=== PATIENT | male | born 1955 | race African-American/Black ===

== ENCOUNTER 2022-11-10 13:51 | Emergency (ER) | payer OTHER ==
[~2022-11-10] VITALS: Ht 180.3 cm; Wt 104.3 kg
--- NOTE | 2022-11-10 14:20 | NUR ---
PAtient AOx4, able to express his concerns. Patient states he has neck stiffness, but overall feels ok. Discussed plan of care, patient verbalized agreement.
[2022-11-10 14:46] VITALS: BP 138/76
== END 2022-11-10 14:55 | disposition home or self-care (01) ==
LOC: ER 13:55
DX: R42 Dizziness and giddiness (principal); I10 Essential (primary) hypertension; Z98.890 Other specified postprocedural states
CPT/HCPCS: 82962-TC

== ENCOUNTER 2024-08-09 12:57 | Emergency (ER) | payer OTHER, MEDICAID ==
[~2024-08-09] VITALS: Ht 177.8 cm; Wt 108.0 kg
[2024-08-09 15:04] VITALS: BP 135/69; TEMP 98
[2024-08-09 17:00] VITALS: O2SAT 100
== END 2024-08-09 17:03 | disposition home or self-care (01) ==
LOC: ER 13:24
DX: J06.9 Acute upper respiratory infection, unspecified (principal); R53.81 Other malaise; R05.9 Cough, unspecified; B97.89 Other viral agents as the cause of diseases classified elsewhere; M79.18 Myalgia, other site; I10 Essential (primary) hypertension; R50.9 Fever, unspecified; R53.83 Other fatigue; Z20.822 Contact with and (suspected) exposure to COVID-19